=== PATIENT | female | born 1970 | race Hispanic/Latino ===

== ENCOUNTER 2017-10-20 09:12 | Emergency (ER) | payer MEDICAID, OTHER ==
[2017-10-20] MEDS ORDERED: Albuterol 0.083% Inhal Sol (2.5 mg/3 mL) UD IH STA (09:39)
--- NOTE | 2017-10-20 09:48 | ED PDOC ---
Arrival/HPI - General Chief Complaint: Cough, Cold, Congestion Time Seen by Provider: 10/20/17 09:17 Historian: Patient - History of Present Illness Narrative History of Present Illness (Text): 10/20/17 09:46 47yr old female with hx of HTN presents today with 2 week history of productive cough. pt c/o sore throat and nasal congestion. pt states she has hx of bronchitis and thinks thats what she has again. pt states is currently smoking. pt states 2 weeks ago she woke up with subjective fevers, cough, sore throat and nasal congestion. pt states the next day the fever had resolved but cough and sore throat continued. pt states she is having productive cough. denies cp or sob. no medications taken at home. pt denies dizziness or weakness. no abdominal pain. no headaches. no other complaints. pt states she hasnt taken her BP medication in years because she lost insurance. Past Medical History - Provider Review Nursing Documentation Reviewed: Yes - Travel History Have you recently traveled outside [place] w/in the past 3 mons?: No - Infectious Disease Hx of Infectious Diseases: None - Tetanus Immunization Tetanus Immunization: Unknown - Cardiac Hx Cardiac Disorders: Yes Hx Hypertension: Yes - Pulmonary Hx Respiratory Disorders: No Hx Asthma: No - Neurological Hx Neurological Disorder: No - HEENT Hx HEENT Disorder: No - Renal Hx Renal Disorder: Yes Hx Kidney Stones: Yes - Endocrine/Metabolic Hx Endocrine Disorders: No - Hematological/Oncological Hx Blood Disorders: No - Integumentary Hx Dermatological Disorder: No - Musculoskeletal/Rheumatological Hx Musculoskeletal Disorders: No - Gastrointestinal Hx Gastrointestinal Disorders: No Hx Gall Bladder Disease: Yes - Genitourinary/Gynecological Hx Genitourinary Disorders: Yes Hx Urinary Tract Infection: Yes - Psychiatric Hx Psychophysiologic Disorder: No Hx Depression: No Hx Emotional Abuse: No Hx Physical Abuse: No Hx Substance Use: No - Surgical History Hx Cholecystectomy: Yes - Anesthesia Hx Anesthesia: Yes Hx Anesthesia Reactions: No Hx Malignant Hyperthermia: No - Suicidal Assessment Feels Threatened In Home Enviroment: No Family/Social History - Physician Review Nursing Documentation Reviewed: Yes Family/Social History: Unknown Family HX Smoking Status: Light Smoker < 10 Cigarettes Daily Hx Alcohol Use: Yes Frequency of alcohol use: Socially Hx Substance Use: No Allergies/Home Meds Allergies/Adverse Reactions: Allergies No Known Allergies Allergy (Verified 12/22/14 14:17) Review of Systems - Review of Systems Constitutional: absent: Fatigue, Fevers Eyes: absent: Vision Changes ENT: Sore Throat, Sinus Congestion Respiratory: Cough. absent: SOB Cardiovascular: absent: Chest Pain, Palpitations Gastrointestinal: absent: Abdominal Pain, Nausea, Vomiting Genitourinary Female: absent: Dysuria Musculoskeletal: absent: Arthralgias, Back Pain, Neck Pain Skin: absent: Rash, Pruritis Neurological: absent: Headache, Dizziness Psychiatric: absent: Anxiety, Depression, Suicidal Ideation Physical Exam Vital Signs Reviewed: Yes Vital Signs Temp Pulse Resp BP Pulse Ox 10/20/17 11:07 70 18 164/68 H 98 10/20/17 09:29 98.5 F 80 18 168/112 H 99 Temperature: Afebrile Blood Pressure: Hypertensive Pulse: Regular Respiratory Rate: Normal Appearance: Positive for: Well-Appearing, Non-Toxic, Comfortable Pain Distress: None Mental Status: Positive for: Alert and Oriented X 3 - Systems Exam Head: Present: Atraumatic Conjunctiva: Present: Normal Ears: Present: Normal, NORMAL TM Mouth: Present: Moist Mucous Membranes. No: Drooling, Trismus Pharnyx: Present: Normal. No: ERYTHEMA, EXUDATE, TONSILS ENLARGED, Peritonsilar Swelling, Uvular Deviation, Muffled/Hoarse Voice Nose (External): Present: Atraumatic Nose (Internal): Present: Normal Inspection Neck: Present: Normal Range of Motion, Trachea Midline. No: MIDLINE TENDERNESS , Paraspinal Tenderness Respiratory/Chest: Present: Good Air Exchange, Wheezes (slight expiratory wheeze ), Rhonchi. No: Clear to Auscultation, Respiratory Distress, Accessory Muscle Use, Retracting, Tachypneic, Tender to Palpation Cardiovascular: Present: Regular Rate and Rhythm Abdomen: No: Tenderness, Rebound, Guarding Neurological: Present: GCS=15, Speech Normal Skin: Present: Warm, Dry, Normal Color. No: Rashes Psychiatric: Present: Alert, Oriented x 3 Medical Decision Making ED Course and Treatment: 10/20/17 09:49 Patient is nontoxic well-appearing in no distress. pt hypertensive; pt with hx of HTN non compliant with medications. cxr; no infiltrate or effusion albuterol neb given. Prednisone by mouth Zithromax Patient reassessment: Patient feeling better after medications lungs are clear to auscultation bilaterally. I advised follow up with primary care physician/clinic within the next 2 days. I advised increase fluids and return if symptoms worsen persist or if new symptoms develop. I advised patient to follow up with the clinic regarding her elevated blood pressure. advised patient to quit smoking. Patient verbalizes understanding of discharge instructions and need for immediate followup. all aspects of this case were discussed the attending of record. IMPRESSION; cough Motrin one tablet every 6 hours as needed for pain Zithromax one tablet once daily x4 days albuterol; 2 puffs every 4-6 hours as needed for cough. Increase fluids Followup with primary care physician/clinic the next 2 days Return if symptoms worsen persist or if new symptoms develop Reassessment Condition: Re-examined, Improved - RAD Interpretation Radiology Orders: 10/20/17 09:39 CHEST TWO VIEWS (PA/LAT) [RAD] Stat - Medication Orders Current Medication Orders: Discontinued Medications Albuterol Sulfate (Albuterol 0.083% Inhal Damaris (2.5 Mg/3 Ml) Ud) 2.5 mg IH STAT STA Stop: 10/20/17 09:40 Last Admin: 10/20/17 09:51 Dose: 2.5 mg Albuterol/Ipratropium (Duoneb 3 Mg/0.5 Mg (3 Ml) Ud) 3 ml IH STAT STA Stop: 10/20/17 10:41 Last Admin: 10/20/17 10:54 Dose: 3 ml Azithromycin (Zithromax) 500 mg PO STAT STA PRN Reason: Protocol Stop: 10/20/17 10:40 Last Admin: 10/20/17 10:52 Dose: 500 mg Prednisone (Prednisone Tab) 60 mg PO STAT ONE Stop: 10/20/17 10:40 Last Admin: 10/20/17 10:52 Dose: 60 mg Disposition/Present on Arrival - Present on Arrival Any Indicators Present on Arrival: No History of DVT/PE: No History of Uncontrolled Diabetes: No Urinary Catheter: No History of Decub. Ulcer: No History Surgical Site Infection Following: None - Disposition Have Diagnosis and Disposition been Completed?: Yes Diagnosis: Cough Disposition: HOME/ ROUTINE Disposition Time: 10:30 Patient Plan: Discharge Patient Problems: Current Active Problems Problem Status Onset Cough Acute Condition: GOOD Discharge Instructions (ExitCare): Cough in Adults Additional Instructions: Motrin one tablet every 6 hours as needed for pain/fever Zithromax one tablet once daily x4 days prednisone; 1 tablet daily x 4 days Albuterol; 2 puffs every 4-6 hours as needed for cough. Increase fluids Followup with primary care physician/medical clinic within the next 2 days Return if symptoms worsen persist or if new symptoms develop Prescriptions: Albuterol HFA [Ventolin HFA 90 mcg/actuation (8 g)] 2 puff IH [id number] PRN #1 inhaler PRN Reason: Cough Azithromycin [Zithromax] 250 mg PO DAILY #4 tab Ibuprofen [Motrin] 600 mg PO Q6H PRN #20 tab PRN Reason: pain/fever reduction predniSONE [predniSONE Tab] 3 tab PO DAILY #12 tab Referrals: Shanika Garza MD [Staff Provider] - Follow up with primary [facility] [Outside] - Follow up with primary Forms: [facility] (Bengali), WORK NOTE
[2017-10-20 09:52] VITALS: RESP 18; TEMP 98.5
--- NOTE | 2017-10-20 10:19 | RAD ---
Date of service: 10/20/2017 HISTORY: cough x 2 weeks COMPARISON: 11/26/2014 TECHNIQUE: Chest PA and lateral FINDINGS: LUNGS: No active pulmonary disease. PLEURA: No significant pleural effusion identified. No pneumothorax apparent. CARDIOVASCULAR: Normal. OSSEOUS STRUCTURES: No significant abnormalities. VISUALIZED UPPER ABDOMEN: Normal. OTHER FINDINGS: None. IMPRESSION: No active disease.
[2017-10-20] MEDS ORDERED: Albuterol-Ipratrop 3 mg / 0.5 (3 ml) UD IH STA (10:40)
[2017-10-20 11:07] VITALS: BP 164/68; PULSE 70; O2SAT 98
== END 2017-10-20 11:32 | disposition home or self-care (01) ==
LOC: ED 09:12
DX: R05 Cough (principal); I10 Essential (primary) hypertension; F17.210 Nicotine dependence, cigarettes, uncomplicated